=== PATIENT | male | born 1950 | race Caucasian/White ===

== ENCOUNTER 2017-01-06 15:01 | Emergency (ER) | payer OTHER ==
[2017-01-06 15:44] VITALS: BP 119/85
[2017-01-06] MEDS ORDERED: Aspirin Low Dose CHEW TAB* 81 MG PO ONE (15:44)
--- NOTE | 2017-01-06 16:08 | UC ---
Vannessa Altamirano Anna, scribed for Alondra Galeano MD on 01/06/17 at 1528 . Cardiac HPI - HPI Summary HPI Summary: Patient is a 66 y/o male coming to [facility] presenting with constant, left anterior chest pressure that began last night. He describes it as a weird feeling accompanied by nausea. Per triage notes, the patient describes the severity of the pain as 1/10. Upon exertion and prior to his stents, he would feel a similar pressure in his chest. He takes his daily aspirin at night so has not had any today. The patient spoke with his PCP today, who advised the patient to be seen at [facility]. His history is significant for a CABG in 2009. He says his current symptoms do not feel similar to when he had his CABG. He had two cardiac stents placed in 05/[address] Correia (news intern). He had a catheterization in 12/2015 which showed his stents open and patent at that time. He has lost 10 lbs in the last month as a result of dieting. - History of Current Complaint Chief Complaint: UCChestPain Stated Complaint: IRREGULAR PULSE Hx Obtained From: Patient, Family/Corrections Identification Technician - Accompanied by Onset/Duration: Lasting Hours, Still Present Timing: Constant Initial Severity: Moderate Current Severity: Moderate Pain Intensity: 1 - /10 Chest Pain Location: Left Anterior Character: Pressure/Squeezing Aggravating: Nothing Alleviating: Nothing Associated Signs & Symptoms: Positive: Chest Pain, Nausea/Vomiting Related History: Similar Episode/Dx as - CP similar to exertion prior to stents - Risk Factors Pulmonary Embolism Risk Factors: Negative Cardiac Risk Factors: CAD Atrial Fibrillation: Negative TAD Risk Factors: Negative - Allergy/Home Medications Allergies/Adverse Reactions: Allergies Allergy/AdvReac Type Severity Reaction Status Date / Time ELIS Inhibitors Allergy Severe SEVERE Verified 01/06/17 15:15 DIFFICULTY BREATHING Tetanus Toxoid Allergy Unknown Verified 01/06/17 15:15 Reaction Details BETA BLOCKERS Allergy Unknown Uncoded 01/06/17 15:15 Reaction Details ENVIRONMENTAL Allergy Unknown Uncoded 01/06/17 15:15 Reaction Details Home Medications: Home Medications Rosuvastatin Calcium 10 mg PO 01/06/17 [History] PMH/Surg Hx/FS Hx/Imm Hx Endocrine History Of: Denies: Diabetes, Thyroid Disease Cardiovascular History Of: Reports: Cardiac Disorders - bypass in 2009, 2 stents 2014, cath 12/2015 stents patent, Hypertension - NONE SINCE OVER 61 POUND WEIGHT LOSS Denies: Pacemaker/ICD, Myocardial Infarction Respiratory History Of: Denies: COPD, Asthma GI/ History Of: Reports: Kidney Stones - LEFT Denies: Ulcer Psychological History Of: Reports: Depression - LOSS OF JOB - Surgical History Surgical History: Yes Surgery Procedure, Year, and Place: 2008 QUAD BYPASS, [facility] KIDNEY STONES,2004 OR 2005 RIGHT KNEE CARTILEDGE REPAIR AND TENDON REPAIR, [id number] HERNIATED DISC SURGERY, PCI 05/30/2015 with 3 stents - Family History Known Family History: Positive: Cardiac Disease - Hx in both parents - Social History Lives: With Family Alcohol Use: None Substance Use Type: None Smoking Status (MU): Former Smoker Type: Cigarettes Amount Used/How Often: 1 PPD Length of Time of Smoking/Using Tobacco: Quit smoking 1991 Have You Smoked in the Last Year: No When Did the Patient Quit Smoking/Using Tobacco: LONG TIME AGO - Immunization History Most Recent Influenza Vaccination: 2012 Most Recent Tetanus Shot: unable to receive tetanus shot r/t allergy Most Recent Pneumonia Vaccination: has not received Review of Systems Constitutional: Negative Skin: Negative Eyes: Negative ENT: Negative Respiratory: Negative Cardiovascular: Chest Pain Gastrointestinal: Other - Nausea Genitourinary: Negative Motor: Negative Neurovascular: Negative Musculoskeletal: Negative Neurological: Negative Psychological: Negative All Other Systems Reviewed And Are Negative: Yes Physical Exam Triage Information Reviewed: Yes Appearance: Well-Appearing, Well-Nourished, Pain Distress Vital Signs: Initial Vital Signs Temp 98.0 F 01/06/17 15:08 Pulse 80 01/06/17 15:08 Resp 20 01/06/17 15:08 BP 120/73 01/06/17 15:08 Pulse Ox 97 01/06/17 15:08 Vital Signs Reviewed: Yes Eyes: Positive: Conjunctiva Clear ENT Exam: Normal Neck: Positive: Supple Respiratory: Positive: Lungs clear, Normal breath sounds, No respiratory distress Cardiovascular: Positive: RRR, No Murmur, Pulses Normal, Brisk Capillary Refill Musculoskeletal: Positive: Strength Intact, ROM Intact Neurological: Positive: Alert, Muscle Tone Normal Psychological Exam: Normal Skin Exam: Normal - Assessment/Plan Course Of Treatment: Allergies noted. Patient was recommended to go via ambulance and accepts ambulance. [facility] called at 1533. Discussed care with Yashira Ramirez (ED PA) at 1536, who accepts the patient at [facility]. ASA 324 mg chewed given. - Differential Diagnoses - Chest Pain Differential Diagnosis/HQI/PQRI: Acute VT, ACS, GI Disease, Pulmonary Embolism - Clinical Impression Provider Diagnoses: acute chest pain - Physician Notifications Discussed Patient Care With: [facility] called at 1533. Yashira Ramirez (ED PA) at 1536. Agrees to accept patient at [facility]. Instructed by Provider To: MD Will See In ED Discharge - Discharge Plan Condition: Stable Disposition: TRANS HIGHER LVL OF CARE FAC Discharge Disposition Comment: [facility], as accepted by Yashira Ramirez (ED PA) Referrals: Daniel Womack MD [Primary Care Provider] - Diagnostics - Vital Signs Vital Signs Temp Pulse Resp BP Pulse Ox 01/06/17 15:42 98.5 F 76 16 119/85 01/06/17 15:08 98.0 F 80 20 120/73 97 - Laboratory Lab Statement: Any lab studies that have been ordered have been reviewed, and results considered in the medical decision making process. - EKG 1509 Cardiac Rate: NL - 60 bpm EKG Rhythm: Sinus Rhythm ST Segment: Non-Specific - Non-specific ST changes. Inverted T-wave in III. Ectopy: None EKG Interpretation: Normal AV/IV conduction time. Normal axis. EKG Comparison: Other - Deeper T-wave inversion in lead III since 05/31/2016. The documentation as recorded by the Vannessa barajas Anna accurately reflects the service I personally performed and the decisions made by , Alondra Galeano MD.
== END 2017-01-06 16:00 | disposition short-term general hospital (02) ==
LOC: UCEAST 15:01
DX: R07.9 Chest pain, unspecified (principal); R94.31 Abnormal electrocardiogram [ECG] [EKG]; I25.10 Atherosclerotic heart disease of native coronary artery without angina pectoris; I10 Essential (primary) hypertension; Z95.1 Presence of aortocoronary bypass graft
CPT/HCPCS: 93005; 99213; A9270-GY; G0463

== ENCOUNTER 2017-01-06 16:14 | Emergency (ER) | payer OTHER ==
[2017-01-06 17:45] LABS: Hematocrit 51 % (42-52); Mean Corpuscular HGB Conc 33 g/dl (31-36); Mean Corpuscular Hemoglobin 29 pg (27-31); Mean Corpuscular Volume 86 fL (80-94); Mean Platelet Volume 9 um3 (7.4-10.4); Red Blood Count 5.92 10^6/ul (4.0-5.4); Red Cell Distribution Width 15 % (10.5-15)
[2017-01-06 17:56] LABS: Albumin 4.5 g/dL (3.2-5.2); BUN/Creatinine Ratio 9.2 (8-20); Calcium 9.5 mg/dL (8.6-10.3); EGFR African American 113.3 (>60); EGFR Non-African American 88.1 (>60); Magnesium 2.2 mg/dL (1.9-2.7); Total Bilirubin 1.2 mg/dL (0.2-1.0); Total Protein 7.5 g/dL (6.4-8.9)
[2017-01-06 18:06] LABS: TSH (Thyroid Stimulating Horm) 2.69 mcIU/mL (0.34-5.60)
[2017-01-06 21:47] VITALS: BP 113/65
--- NOTE | 2017-01-10 15:41 | ED ---
Aníbal Altamirano SooYoung, scribed for Brian Del Cid MD on 01/06/17 at 1700 . HPI Chest Pain - HPI Summary HPI Summary: A 66 y/o M presents to ED referred from [facility] with racing pulse noticed this AM. He describes feeling "fidgety" and was unable to sleep last night. This AM he took his BP and it was higher than his baseline, and his pulse was 88. He states his baseline pulse is around 46. Associated: dizziness, flushed, nauseous. Denies CP. No PMHx of HTN. Pert PMHx: quadruple bypass, stents. Environmental Marketer is Dr. Correia. - History of Current Complaint Chief Complaint: EDChestWallPain Time Seen by Provider: 01/06/17 16:47 Hx Obtained From: Patient, Family/Seasonal Driver - Onset/Duration: Started Hours Ago Timing: Constant Current Severity: Mild Pain Intensity: 0 Pain Scale Used: 0-10 Numeric Associated Signs and Symptoms: Positive: Dizziness, Nausea, Other: - pos: flushed. Negative: Chest Pain - Allergy/Home Medications Allergies/Adverse Reactions: Allergies Allergy/AdvReac Type Severity Reaction Status Date / Time ELIS Inhibitors Allergy Severe SEVERE Verified 01/06/17 15:15 DIFFICULTY BREATHING Tetanus Toxoid Allergy Unknown Verified 01/06/17 15:15 Reaction Details BETA BLOCKERS Allergy Unknown Uncoded 01/06/17 15:15 Reaction Details ENVIRONMENTAL Allergy Unknown Uncoded 01/06/17 15:15 Reaction Details PMH/Surg Hx/FS Hx/Imm Hx Previously Healthy: No Endocrine/Hematology History: Denies: Hx Diabetes, Hx Thyroid Disease Cardiovascular History: Reports: Hx Angina, Hx Coronary Artery Disease, Hx Hypercholesterolemia, Hx Hypertension - NONE SINCE OVER 61 POUND WEIGHT LOSS, Other Cardiovascular Problems/Disorders - HIGH CHOLESTEROL CONTROL WITH MEDS Denies: Hx Myocardial Infarction, Hx Pacemaker/ICD, Hx Valvular Heart Disease Respiratory History: Denies: Hx Asthma, Hx Chronic Obstructive Pulmonary Disease (COPD) GI History: Denies: Hx Ulcer History: Reports: Hx Kidney Infection - WITH STONE BLOCKAGE, Hx Kidney Stones - LEFT Musculoskeletal History: Reports: Other Musculoskeletal History - RIGHT ARM SURG Sensory History: Reports: Hx Contacts or Glasses - GLASSES, Hx Hearing Aid - BILATERAL, Hx Hearing Problem Denies: Hx Cataracts Opthamlomology History: Reports: Hx Contacts or Glasses - GLASSES Denies: Hx Cataracts Neurological History: Reports: Hx Headaches - FROM SINUSITIS Psychiatric History: Reports: Hx Depression - LOSS OF JOB Denies: Hx Panic Disorder - Surgical History Surgery Procedure, Year, and Place: 2009 QUAD BYPASS, [facility] KIDNEY STONES,2004 OR 2005 RIGHT KNEE CARTILEDGE REPAIR AND TENDON REPAIR, [id number] HERNIATED DISC SURGERY, PCI 05/30/2015 with 3 stents Hx Anesthesia Reactions: No Infectious Disease History: No Infectious Disease History: Denies: Hx Hepatitis, Hx Human Immunodeficiency Virus (HIV), Traveled Outside the [place] in Last 30 Days - Family History Known Family History: Positive: Cardiac Disease - Hx in both parents - Social History Occupation: Unemployed Lives: With Family Alcohol Use: None Hx Substance Use: No Substance Use Type: Reports: None Hx Tobacco Use: No Smoking Status (MU): Former Smoker Type: Cigarettes Amount Used/How Often: 1 PPD Length of Time of Smoking/Using Tobacco: Quit smoking 1992 Have You Smoked in the Last Year: No Review of Systems Positive: Other - pos: flushed. Negative: Fever Positive: Palpitations - high BP, pulse. Negative: Chest Pain Positive: Nausea All Other Systems Reviewed And Are Negative: Yes Physical Exam Triage Information Reviewed: Yes Vital Signs On Initial Exam: Initial Vitals Temp Pulse Resp BP Pulse Ox 98 F 67 16 136/89 98 01/06/17 16:23 01/06/17 16:23 01/06/17 16:23 01/06/17 16:23 01/06/17 16:23 Vital Signs Reviewed: Yes Appearance: Positive: Well-Appearing, No Pain Distress Skin: Positive: Warm, Skin Color Reflects Adequate Perfusion, Dry Head/Face: Positive: Normal Head/Face Inspection Eyes: Positive: Normal ENT: Positive: Normal ENT inspection Neck: Positive: Supple, Nontender Respiratory/Lung Sounds: Positive: Clear to Auscultation, Breath Sounds Present Cardiovascular: Positive: Bradycardia Musculoskeletal: Positive: Normal Neurological: Positive: Normal Psychiatric: Positive: Normal, Affect/Mood Appropriate - [place] Coma Scale Coma Scale Total: 15 Diagnostics - Vital Signs Vital Signs Temp Pulse Resp BP Pulse Ox 01/06/17 16:35 98.6 F 61 15 133/73 99 01/06/17 16:32 65 98 01/06/17 16:30 133/73 01/06/17 16:23 98 F 67 16 136/89 98 - Laboratory Lab Results: Lab Results 01/06/17 01/06/17 01/06/17 Range/Units 16:45 16:45 16:45 WBC 6.0 (3.5-10.8) 10^3/ul RBC 5.92 H (4.0-5.4) 10^6/ul Hgb 17.0 (14.0-18.0) g/dl Hct 51 (42-52) % MCV 86 (80-94) fL MCH 29 (27-31) pg MCHC 33 (31-36) g/dl RDW 15 (10.5-15) % Plt Count 126 L (150-450) 10^3/ul MPV 9 (7.4-10.4) um3 Neut % (Auto) 52.6 (38-83) % Lymph % (Auto) 34.4 (25-47) % [place] % (Auto) 10.0 H (1-9) % Eos % (Auto) 2.5 (0-6) % Baso % (Auto) 0.5 (0-2) % Absolute Neuts (auto) 3.1 (1.5-7.7) 10^3/ul Absolute Lymphs (auto) 2.1 (1.0-4.8) 10^3/ul Absolute Monos (auto) 0.6 (0-0.8) 10^3/ul Absolute Eos (auto) 0.1 (0-0.6) 10^3/ul Absolute Basos (auto) 0 (0-0.2) 10^3/ul Absolute Nucleated RBC 0.01 10^3/ul Nucleated RBC % 0.2 INR (Anticoag Therapy) 1.04 (0.89-1.11) Sodium 137 (133-145) mmol/L Potassium 4.0 (3.5-5.0) mmol/L Chloride 103 (101-111) mmol/L Carbon Dioxide 26 (22-32) mmol/L Anion Gap 8 (2-11) mmol/L BUN 8 (6-24) mg/dL Creatinine 0.87 (0.67-1.17) mg/dL Est GFR ( Amer) 113.3 (>60) Est GFR (Non-Af Amer) 88.1 (>60) BUN/Creatinine Ratio 9.2 (8-20) Glucose 100 (70-100) mg/dL Calcium 9.5 (8.6-10.3) mg/dL Magnesium 2.2 (1.9-2.7) mg/dL Total Bilirubin 1.20 H (0.2-1.0) mg/dL AST 21 (13-39) U/L ALT 18 (7-52) U/L Alkaline Phosphatase 73 (34-104) U/L Troponin I 0.00 (<0.04) ng/mL Total Protein 7.5 (6.4-8.9) g/dL Albumin 4.5 (3.2-5.2) g/dL Globulin 3.0 (2-4) g/dL Albumin/Globulin Ratio 1.5 (1-3) TSH 2.69 (0.34-5.60) mcIU/mL 01/06/17 Range/Units 20:00 WBC (3.5-10.8) 10^3/ul RBC (4.0-5.4) 10^6/ul Hgb (14.0-18.0) g/dl Hct (42-52) % MCV (80-94) fL MCH (27-31) pg MCHC (31-36) g/dl RDW (10.5-15) % Plt Count (150-450) 10^3/ul MPV (7.4-10.4) um3 Neut % (Auto) (38-83) % Lymph % (Auto) (25-47) % [place] % (Auto) (1-9) % Eos % (Auto) (0-6) % Baso % (Auto) (0-2) % Absolute Neuts (auto) (1.5-7.7) 10^3/ul Absolute Lymphs (auto) (1.0-4.8) 10^3/ul Absolute Monos (auto) (0-0.8) 10^3/ul Absolute Eos (auto) (0-0.6) 10^3/ul Absolute Basos (auto) (0-0.2) 10^3/ul Absolute Nucleated RBC 10^3/ul Nucleated RBC % INR (Anticoag Therapy) (0.89-1.11) Sodium (133-145) mmol/L Potassium (3.5-5.0) mmol/L Chloride (101-111) mmol/L Carbon Dioxide (22-32) mmol/L Anion Gap (2-11) mmol/L BUN (6-24) mg/dL Creatinine (0.67-1.17) mg/dL Est GFR ( Amer) (>60) Est GFR (Non-Af Amer) (>60) BUN/Creatinine Ratio (8-20) Glucose (70-100) mg/dL Calcium (8.6-10.3) mg/dL Magnesium (1.9-2.7) mg/dL Total Bilirubin (0.2-1.0) mg/dL AST (13-39) U/L ALT (7-52) U/L Alkaline Phosphatase (34-104) U/L Troponin I 0.00 (<0.04) ng/mL Total Protein (6.4-8.9) g/dL Albumin (3.2-5.2) g/dL Globulin (2-4) g/dL Albumin/Globulin Ratio (1-3) TSH (0.34-5.60) mcIU/mL Result Diagrams: 01/06/17 16:45 01/06/17 16:45 Lab Statement: Any lab studies that have been ordered have been reviewed, and results considered in the medical decision making process. - EKG 1 Cardiac Rate: NL EKG Rhythm: Sinus Rhythm ST Segment: Non-Specific - inferior T-wave EKG Comparison: No Significant Change - since 05/31/15 Re-Evaluation - Re-Evaluation 1 Re-Evaluation Time: 19:02 Change: Improved Comment: Discussing results with pt. Awaiting 2nd trop. Chest Pain Course/Dx - Course Course Of Treatment: Mr. Littlejohn was sent over from [facility] with a C/O chest pain. His EDACS score was 16 and he is being observed on the monitor while awaiting labs. His first Trop was negative and I would expect he will be D/C's if a three hour trop is also negative. - Diagnoses Provider Diagnoses: Chest pain - Provider Notifications Discussed Care Of Patient With: Dr. Rivera at change of shift Discharge - Discharge Plan Condition: Stable Disposition: HOME Discharge Disposition Comment: Sign out due to shift change, awaiting 2nd troponin. Patient Education Materials: Palpitations (ED) Referrals: Daniel Womack MD [Primary Care Provider] - Additional Instructions: Follow up with your primary care physician. Please return to the ED if you experience new or worsening symptoms. The documentation as recorded by the Aníbal barajas SooYoung accurately reflects the service I personally performed and the decisions made by me, Brian Del Cid MD.
--- NOTE | 2017-01-11 23:23 | ED ---
Monica Altamirano Erika, scribed for Jone Rivera MD on 01/06/17 at 2133 . Progress - Progress Note Progress Note: Repeat troponin 0.00. Patient will be discharged home stable as per Dr. Del Cid's plan. Re-Evaluation - Re-Evaluation 1 Re-Evaluation Time: 19:02 Change: Improved Comment: Discussing results with pt. Awaiting 2nd trop. Course/Dx - Diagnoses Provider Diagnoses: Chest pain The documentation as recorded by the Monica abrajas Erika accurately reflects the service I personally performed and the decisions made by , Jone Rivera MD.
== END 2017-01-06 21:46 | disposition home or self-care (01) ==
LOC: ED 16:14
DX: R07.9 Chest pain, unspecified (principal); R42 Dizziness and giddiness; R11.0 Nausea; Z87.891 Personal history of nicotine dependence; R00.2 Palpitations
CPT/HCPCS: 36415; 80053; 83735; 84443; 84484; 85025; 85610; 93005; 99283

== ENCOUNTER 2017-03-04 11:22 | Emergency (ER) | payer OTHER ==
[2017-03-04 12:14] VITALS: BP 129/76
--- NOTE | 2017-03-04 13:34 | UC ---
Skin Complaint HPI - HPI Summary HPI Summary: Pt here w/ possible bug bites? Was cleaning under his camper, lying on the grass on the ground last week and later noticed red, itchy bumps on his Rt tricep area and Lt elbow area of B/L arms. Over the past few days has noticed 1 spot on his ab and a couple on his back. Has been itching these. 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 mice). Tried topical "after bite" w/ minimal relief. Denies fever, chills, wheezing, swelling, SOB, N/V/D, ab pain. H/o "environmental allergies". Has not tried anti-histamine nor topical hydrocortisone. Not sure if he came into contact with poison adelaida/sumac/oak. No previous skin issues to report. No other changes in diet, medications and/or skin contacts. - History of Current Complaint Chief Complaint: UCRash Time Seen by Provider: 03/04/17 13:14 Stated Complaint: BUG BITES Hx Obtained From: Patient - Allergy/Home Medications Allergies/Adverse Reactions: Allergies Allergy/AdvReac Type Severity Reaction Status Date / Time ELIS Inhibitors Allergy Severe SEVERE Verified 03/04/17 12:10 DIFFICULTY BREATHING Tetanus Toxoid Allergy Unknown Verified 03/04/17 12:10 Reaction Details BETA BLOCKERS Allergy Unknown Uncoded 03/04/17 12:10 Reaction Details ENVIRONMENTAL Allergy Unknown Uncoded 03/04/17 12:10 Reaction Details Review of Systems Constitutional: Negative Skin: Rash - see HPI Respiratory: Negative Cardiovascular: Negative Gastrointestinal: Negative Motor: Negative Neurovascular: Negative Musculoskeletal: Negative Neurological: Negative Psychological: Negative All Other Systems Reviewed And Are Negative: Yes PMH/Surg Hx/FS Hx/Imm Hx Previously Healthy: Yes Endocrine History Of: Denies: Diabetes, Thyroid Disease Cardiovascular History Of: Reports: Cardiac Disorders - quad CABG, Hypertension - NONE SINCE OVER 61 POUND WEIGHT LOSS Denies: Pacemaker/ICD, Myocardial Infarction Respiratory History Of: Denies: COPD, Asthma GI/ History Of: Reports: Kidney Stones - LEFT Denies: Ulcer Psychological History Of: Reports: Depression - LOSS OF JOB - Surgical History Surgical History: Yes Surgery Procedure, Year, and Place: 2008 QUAD BYPASS, [facility] KIDNEY STONES,2003 OR 2005 RIGHT KNEE CARTILEDGE REPAIR AND TENDON REPAIR, [id number] HERNIATED DISC SURGERY, PCI 05/30/2015 with 3 stents - Family History Known Family History: Positive: Cardiac Disease - Hx in both parents - Social History Lives: With Family - Alcohol Use: None Substance Use Type: None Smoking Status (MU): Former Smoker Type: Cigarettes Amount Used/How Often: 1 PPD Length of Time of Smoking/Using Tobacco: Quit smoking 1991 Have You Smoked in the Last Year: No When Did the Patient Quit Smoking/Using Tobacco: LONG TIME AGO - Immunization History Most Recent Influenza Vaccination: 2012 Most Recent Tetanus Shot: unable to receive tetanus shot r/t allergy Most Recent Pneumonia Vaccination: has not received Physical Exam Triage Information Reviewed: Yes Appearance: Well-Appearing, No Pain Distress, Well-Nourished Vital Signs: Initial Vital Signs Temp 97.2 F 03/04/17 12:11 Pulse 54 03/04/17 12:11 Resp 16 03/04/17 12:11 BP 129/76 03/04/17 12:11 Pulse Ox 100 03/04/17 12:11 Vital Signs Reviewed: Yes Eye Exam: Normal ENT Exam: Normal Neck exam: Normal Neck: Positive: No Lymphadenopathy Respiratory Exam: Normal Respiratory: Positive: Lungs clear. Negative: Stridor, Wheezing Cardiovascular Exam: Normal Cardiovascular: Positive: RRR Abdominal Exam: Normal Abdomen Description: Positive: Nontender, Soft Musculoskeletal: Positive: Strength Intact, ROM Intact. Negative: Edema @ Neurological Exam: Normal Psychological Exam: Normal Skin Exam: Other - small scabbed and vesicular papules over Rt tricep area and Lt dorsal elbow - healing excoriations as well as linear stringing of vesicles - no edema, erythema of underlying tissue - no EM rash, no streaking - NTTP; appears to have healing ecchymosis over Rt tricep area - pt admits to scratching here often and vigorously; 3mm area of scabbed/crusted erythema over ab - 3 small areas on back w/ similar appearance - again, no surrounding erythema/edema/streaking/drainage/induration Course/Dx - Course Course Of Treatment: Pt here w/ rash over posterior arms and 2 new spots on ab/ back s/p 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 Source is not clear - could be combination of irritants but does have some presentation of possible poison adelaida/sumac/oak. Advised anti-histamines PO along w/ topical hydrocoritsone and avoiding excessive washing/heat and repeat contact with possible irritants. Pt agrees to cover skin prior to working in these areas again and will seek immediate medical attention if he has facial swelling, trouble breathing, headache, fever, chills, chest pain. - Diagnoses Provider Diagnoses: Contact dermatitis, specific source unknown Discharge - Discharge Plan Condition: Stable Disposition: HOME Patient Education Materials: Contact Dermatitis (ED), Poison Adelaida (ED) Referrals: Daniel Womack MD [Primary Care Provider] - Additional Instructions: Suspect your rash today was caused by contact with a substance causing a reaction with your skin. It appears to be healing, but the itching may be making it spread as you may be touching oils from the initial site and spreading to your abdomen and back. You may try an anti-histamine by mouth (ie,. benadryl, zyrtec, etc) however caution this may make you drowsy - do not operate machinery while taking. This can also affect blood pressure - use sparingly. You may also try toical hydrocortison cream to reduce itch. Wash hands well before and after applications and keep areas covered to prevent further spread if oils are seeping. Furthermore, if this is a poison adelaida/sumac/oak rash, you may try Zanfel , an over the counter wash, that aids in drying said oils to hasten healing time and prevent spread. Caution future work in these areas and if you do, make sure to cover all skin with appropriate attire. Follow-up with PCP this week if symptoms persist. *If worse or you experience facial swelling, trouble breathing, headache, fever , chills, chest pain, go to ED.
== END 2017-03-04 13:52 | disposition home or self-care (01) ==
LOC: UCEAST 11:22
DX: L25.9 Unspecified contact dermatitis, unspecified cause (principal); I10 Essential (primary) hypertension; Z95.1 Presence of aortocoronary bypass graft; Z95.5 Presence of coronary angioplasty implant and graft; Z87.442 Personal history of urinary calculi; F32.9 Major depressive disorder, single episode, unspecified; Z88.7 Allergy status to serum and vaccine; Z87.891 Personal history of nicotine dependence
CPT/HCPCS: 99211; G0463

== ENCOUNTER 2017-07-31 07:03 | Emergency (ER) | payer OTHER ==
[2017-07-31 07:18] VITALS: BP 128/71
--- NOTE | 2017-07-31 07:39 | UC ---
Skin Complaint HPI - HPI Summary HPI Summary: SEVERAL WEEKS OF TENDER BUMP UNDER THE SKIN ON HIS RIGHT HIP. DENIES ANY INJURY TO THE AREA. STATES OVER THE PAST WEEK THE PAIN HAS BECOME CONSTANT AND HE HAS DEVELOPED A BRUISE AROUND IT. NO REDNESS OR DRAINAGE. NO FEVER, CHUN, BODY ACHES. - History of Current Complaint Chief Complaint: UCSkin Time Seen by Provider: 07/31/17 07:19 Stated Complaint: PAINFUL LUMP ON SIDE Hx Obtained From: Patient Onset/Duration: Gradual Onset, Lasting Weeks, Still Present Timing: Constant Onset Severity: Mild Current Severity: Moderate Pain Intensity: 5 Pain Scale Used: 0-10 Numeric Character: Pain Aggravating Factor(s): Touch Alleviating Factor(s): Nothing Associated Signs & Symptoms: Positive: Bruising, Tenderness - Allergy/Home Medications Allergies/Adverse Reactions: Allergies Allergy/AdvReac Type Severity Reaction Status Date / Time ELIS Inhibitors Allergy Severe SEVERE Verified 07/31/17 07:10 DIFFICULTY BREATHING Tetanus Toxoid Allergy Unknown Verified 07/31/17 07:10 Reaction Details BETA BLOCKERS Allergy Unknown Uncoded 07/31/17 07:10 Reaction Details ENVIRONMENTAL Allergy Unknown Uncoded 07/31/17 07:10 Reaction Details Review of Systems Constitutional: Negative Skin: Bruising Respiratory: Negative Cardiovascular: Negative Gastrointestinal: Negative All Other Systems Reviewed And Are Negative: Yes PMH/Surg Hx/FS Hx/Imm Hx Cardiovascular History: Cardiac Disease GI/ History: Kidney Stones - Surgical History Surgical History: Yes Surgery Procedure, Year, and Place: 2008 QUAD BYPASS, [facility] K[facility] STONES,2004 OR 2005 RIGHT KNEE CARTILEDGE REPAIR AND TENDON REPAIR, [id number] HERNIATED DISC SURGERY, PCI 05/30/2015 with 3 stents - Family History Known Family History: Positive: Cardiac Disease - Hx in both parents - Social History Alcohol Use: None Substance Use Type: None Smoking Status (MU): Former Smoker Type: Cigarettes Amount Used/How Often: 1 PPD Length of Time of Smoking/Using Tobacco: Quit smoking 1991 Have You Smoked in the Last Year: No When Did the Patient Quit Smoking/Using Tobacco: LONG TIME AGO - Immunization History Most Recent Influenza Vaccination: 2012 Most Recent Tetanus Shot: unable to receive tetanus shot r/t allergy Most Recent Pneumonia Vaccination: has not received Physical Exam Triage Information Reviewed: Yes Appearance: Well-Appearing, No Pain Distress, Well-Nourished Vital Signs: Initial Vital Signs Temp 96.9 F 07/31/17 07:12 Pulse 54 07/31/17 07:12 Resp 16 07/31/17 07:12 BP 128/71 07/31/17 07:12 Pulse Ox 100 07/31/17 07:12 Vital Signs Reviewed: Yes Eyes: Positive: Conjunctiva Clear ENT: Positive: Hearing grossly normal Neck: Positive: Supple Respiratory: Positive: No respiratory distress, No accessory muscle use Cardiovascular: Positive: Pulses Normal Abdomen Description: Positive: Soft Musculoskeletal: Positive: No Edema Neurological: Positive: Alert Psychological: Positive: Age Appropriate Behavior Skin: Positive: Other - 6CM X 4CM AREA OF ECCHYMOSIS RIGHT ANTERIOR HIP WITH CENTRALLY LOCATED 2 CM FIRM TENDER NODULE Course/Dx - Diagnoses Provider Diagnoses: SUBCUTANEOUS NODULE Discharge - Discharge Plan Condition: Stable Disposition: HOME Referrals: Juni Farmer MD [Medical Doctor] - 1 Week Daniel Womack MD [Primary Care Provider] - If Needed Additional Instructions: THE NODULE UNDER YOUR SKIN DOES NOT APPEAR TO BE ANYTHING CONCERNING AT PRESENT BUT SHOULD BE EVALUATED FURTHER. CALL THE GENERAL SURGEON TO SCHEDULE AN APPT TO DISCUSS TREATMENT OPTIONS. THEY MAY CONSIDER IMAGING OR EXCISION TO FURTHER EVALUATE. THE SURROUNDING BRUISING LOOKS LIKE IT IS RESOLVING.
== END 2017-07-31 07:48 | disposition home or self-care (01) ==
LOC: UCEAST 07:03
DX: R22.9 Localized swelling, mass and lump, unspecified (principal); Z87.442 Personal history of urinary calculi; Z87.891 Personal history of nicotine dependence
CPT/HCPCS: 99211; G0463

== ENCOUNTER 2018-02-01 19:26 | Emergency (ER) | payer OTHER ==
[2018-02-01 19:40] VITALS: BP 127/75
[2018-02-01] MEDS ORDERED: DOXYcycline CAP(*) 100 MG PO ONE (20:03)
--- NOTE | 2018-02-01 20:03 | UC ---
Skin Complaint HPI - HPI Summary HPI Summary: PATIENT FOUND A TICK ON HIS RIGHT MID BACK TODAY. TRIED TO REMOVE IT BUT SOME PARTS REMAIN. PROBABLY ATTACHED YESTERDAY WHEN HE WAS OUTSIDE IN HIS YARD BUT PATIENT UNSURE. MAY HAVE BEEN ATTACHED LONGER. OTHERWISE FEELS WELL. NO FEVER, RASH, HEADACHE, JOINT/MUSCLE PAIN. - History of Current Complaint Chief Complaint: UCBiteInjury Time Seen by Provider: 02/01/18 19:48 Stated Complaint: TICK REMOVAL Hx Obtained From: Patient Timing: Constant Onset Severity: Mild Current Severity: Mild Pain Intensity: 0 Pain Scale Used: 0-10 Numeric Location: Discrete - RIGHT MID BACK Character: Pain, Redness Aggravating Factor(s): Touch Alleviating Factor(s): Nothing Associated Signs & Symptoms: Positive: Tenderness - Allergy/Home Medications Allergies/Adverse Reactions: Allergies Allergy/AdvReac Type Severity Reaction Status Date / Time ELIS Inhibitors Allergy Unknown Verified 02/01/18 19:44 Reaction Details Beta-Blockers Allergy Unknown Verified 02/01/18 19:44 (Beta-Adrenergic Bloc Reaction Details Tetanus Vaccines and Toxoid Allergy Unknown Verified 02/01/18 19:44 Reaction Details Home Medications: Home Medications Rosuvastatin (NF) [Crestor (NF)] 10 mg PO DAILY 02/01/18 [History Confirmed ] Review of Systems Constitutional: Negative Skin: Other - TICK BITE RIGHT BACK Respiratory: Negative Cardiovascular: Negative Gastrointestinal: Negative All Other Systems Reviewed And Are Negative: Yes PMH/Surg Hx/FS Hx/Imm Hx Endocrine History: Dyslipidemia - Surgical History Surgical History: Yes Surgery Procedure, Year, and Place: 2008 QUAD BYPASS, [facility] KIDNEY STONES,2003 OR 2005 RIGHT KNEE CARTILEDGE REPAIR AND TENDON REPAIR, [id number] HERNIATED DISC SURGERY, PCI 05/30/2015 with 3 stents - Family History Known Family History: Positive: Cardiac Disease - Hx in both parents - Social History Alcohol Use: None Substance Use Type: None Smoking Status (MU): Former Smoker Type: Cigarettes Amount Used/How Often: 1 PPD Length of Time of Smoking/Using Tobacco: Quit smoking 1991 Have You Smoked in the Last Year: No When Did the Patient Quit Smoking/Using Tobacco: LONG TIME AGO - Immunization History Most Recent Influenza Vaccination: 2013 Most Recent Tetanus Shot: unable to receive tetanus shot r/t allergy Most Recent Pneumonia Vaccination: has not received Physical Exam Triage Information Reviewed: Yes Appearance: Well-Appearing, No Pain Distress, Well-Nourished Vital Signs: Initial Vital Signs Temp 98.0 F 02/01/18 19:36 Pulse 48 02/01/18 19:36 Resp 14 02/01/18 19:36 BP 127/75 02/01/18 19:36 Pulse Ox 100 02/01/18 19:36 Vital Signs Reviewed: Yes Eyes: Positive: Conjunctiva Clear ENT: Positive: Hearing grossly normal Neck: Positive: Supple Respiratory: Positive: No respiratory distress, No accessory muscle use Cardiovascular: Positive: Pulses Normal Abdomen Description: Positive: Soft Musculoskeletal: Positive: No Edema Neurological: Positive: Alert Psychological: Positive: Normal Response To Family, Age Appropriate Behavior Skin: Positive: Other - TICK BITE SITE RIGHT MID BACK WITH TICK PARTS EMBEDDED. 1CM AREA OF ERYTHEMA SURROUNDING. MILDLY TENDER. Course/Dx - Course Course Of Treatment: TICK PARTS REMOVED PER PT REQUEST USING 18GAUGE NEEDLE AND SPLINTER FORCEPS. DOXYCYCLINE 200 MG GIVEN FOR LYME PROPHYLAXIS. - Diagnoses Provider Diagnoses: TICK BITE, LYME PROPHYLAXIS Discharge - Sign-Out/Discharge Documenting (check all that apply): Discharge/Admit/Transfer - Discharge Plan Condition: Stable Disposition: HOME Patient Education Materials: Tick Bite (ED) Referrals: Daniel Womack MD [Primary Care Provider] - If Needed Additional Instructions: You received 200mg of doxycycline for prophylaxis against Lyme disease. The Infectious Disease Society of [place] (IDSA) does not generally recommend antimicrobial prophylaxis for prevention of Lyme disease after a recognized tick bite. However, in areas that are highly endemic for Lyme disease, a single dose of doxycycline may be offered to adult patients (200 mg) who are not and to children older than 8 years of age (4 mg/kg up to a maximum dose of 200 mg) when all of the following circumstances exist: CRITERIA FOR RECEIVING PROPHYLACTIC TREATMENT FOR LYME DISEASE 1) TICK ATTACHED FOR AT LEAST 36 HRS 2) TICK IS AN ADULT OR [place] DEER TICK 3) YOU LIVE IN AN AREA WHERE LYME DISEASE IS PREVALENT (i.e., [place], [place], [place], , [place] , [place], [place], [place], [place], [place], [place], [place], [place], [place]) 4) YOU HAVE NO CONTRAINDICATION TO THE MEDICATION (DOXYCYCLINE) 5) PROPHYLAXIS IS BEGUN WITHIN 72 HRS OF TICK REMOVAL YOUR CHANCES OF DEVELOPING LYME DISEASE ARE EXTREMELY SMALL. BE VIGILANT OF YOUR SYMPTOMS AND DON'T HESITATE TO GET SEEN AGAIN IF YOU DEVELOP UNEXPLAINED FEVER, HEADACHE, JOINT PAIN, BODY ACHES, RASH OR ANY OTHER CONCERNING SYMPTOMS. - Billing Disposition and Condition Condition: STABLE Disposition: HOME
== END 2018-02-01 20:14 | disposition home or self-care (01) ==
LOC: UCEAST 19:26
DX: S20.461A Insect bite (nonvenomous) of right back wall of thorax, initial encounter (principal); W57.XXXA Bitten or stung by nonvenomous insect and other nonvenomous arthropods, initial encounter; Y93.9 Activity, unspecified; Y92.9 Unspecified place or not applicable; Z95.1 Presence of aortocoronary bypass graft; Z95.5 Presence of coronary angioplasty implant and graft; Z88.7 Allergy status to serum and vaccine; Z88.8 Allergy status to other drugs, medicaments and biological substances; Z87.891 Personal history of nicotine dependence
CPT/HCPCS: 99212; A9270-GY; G0463